=== PATIENT | female | born 1935 ===

== ENCOUNTER 2020-12-23 11:30 | Inpatient (IN) | payer OTHER ==
[~2020-12-23] VITALS: Ht 154.9 cm; Wt 58.5 kg
[2020-12-26] MEDS ORDERED: METFORMIN HCL500 MG (16:00)
[2020-12-26] MEDS ORDERED: GLIPIZIDE XL10 MG PO (16:00)
[2020-12-26] MEDS ORDERED: OMEPRAZOLE40 MG PO (16:00)
[2020-12-26] MEDS ORDERED: CARDURA1 MG PO (16:01)
[2020-12-26] MEDS ORDERED: PLAVIX75 MG PO (16:01)
[2020-12-26] MEDS ORDERED: SIMVASTA PO (16:01)
[2020-12-26] MEDS ORDERED: LABETALOL HCL200 MG PO (16:01)
[2020-12-30] MEDS ORDERED: METFORMIN HCL500 M4 (08:52)
[2020-12-30] MEDS ORDERED: HYDROCHLOROTHIA25 MG (08:52)
[2020-12-30] MEDS ORDERED: AMLODIPINE BESYL5 MG (08:52)
[2020-12-30] MEDS ORDERED: SIMVASTATIN10 MG PO (08:53)
[2020-12-30] MEDS ORDERED: SIMVASTATIN10 MG (08:53)
[2020-12-31] MEDS ORDERED: INTESTINEX680 M1 PO (11:33)
[2020-12-31] MEDS ORDERED: ULTRACET PO (11:34)
[2020-12-31] MEDS ORDERED: RECTICARE30 GM TOP (11:34)
== END 2020-12-31 13:42 | disposition home or self-care (01) | DRG 395 ==
LOC: SURG 12-30 06:46 → O/R 12-30 06:46 → SURH 12-30 08:30 → SURG 12-30 13:35
PROVIDERS: ADMIT Surgery; ATTEND Surgery
PROC: 0DBP8ZZ Excision of Rectum, Via Natural or Artificial Opening Endoscopic (ICD-10-PCS; principal; 2020-12-30 08:30)
DX: D12.8 Benign neoplasm of rectum (principal); I10 Essential (primary) hypertension; E13.8 Other specified diabetes mellitus with unspecified complications